=== PATIENT | female | born 1945 | race Caucasian/White ===

== ENCOUNTER 2018-10-27 12:35 | Emergency (ER) | payer MEDICARE, OTHER ==
[~2018-10-27] VITALS: Ht 170.2 cm; Wt 122.7 kg
[2018-10-27] MEDS ORDERED: CLON-570 PO (13:33)
[2018-10-27] MEDS ORDERED: LISI-660 PO (13:34)
[2018-10-27 14:33] VITALS: BP 188/92
[2018-10-27] MEDS ORDERED: GABAPENTIN 300 MG CAPSULE PO ONE (15:45)
[2018-10-27] MEDS ORDERED: HydrALAZINE HCL 10 MG TABLET PO ONE (15:45)
== END 2018-10-27 15:50 | disposition short-term general hospital (02) ==
LOC: EMS 12:36
DX: S06.5X0A Traumatic subdural hemorrhage without loss of consciousness, initial encounter (principal); I10 Essential (primary) hypertension; I48.91 Unspecified atrial fibrillation; Z88.8 Allergy status to other drugs, medicaments and biological substances; W18.39XA Other fall on same level, initial encounter; Y93.89 Activity, other specified; Y92.89 Other specified places as the place of occurrence of the external cause; Y99.8 Other external cause status
CPT/HCPCS: 70450

== ENCOUNTER → 2018-10-27 | Outpatient (CLI) | payer MEDICARE ==
[~2018-10-27] VITALS: Ht 170.2 cm; Wt 122.2 kg
[~2018-10-27] MED LIST: CLON-570 PO; LISI-660 PO
[2018-10-27 11:23] VITALS: BP 167/75
== END | disposition home or self-care (01) ==
LOC: HBOWC 10:28
PROVIDERS: ATTEND Surgery Plastic and Reconstructive Surgery
DX: T81.89XA Other complications of procedures, not elsewhere classified, initial encounter (principal); I10 Essential (primary) hypertension; E11.9 Type 2 diabetes mellitus without complications; Y83.8 Other surgical procedures as the cause of abnormal reaction of the patient, or of later complication, without mention of misadventure at the time of the procedure; Y92.89 Other specified places as the place of occurrence of the external cause
CPT/HCPCS: 11043; G0463

== ENCOUNTER → 2018-11-17 | Outpatient (CLI) | payer MEDICARE, OTHER ==
[2018-11-17 10:00] VITALS: BP 141/55
== END | disposition home or self-care (01) ==
LOC: HBOWC 09:43
PROVIDERS: ATTEND Surgery Plastic and Reconstructive Surgery
DX: T81.31XD Disruption of external operation (surgical) wound, not elsewhere classified, subsequent encounter (principal); I10 Essential (primary) hypertension; E11.9 Type 2 diabetes mellitus without complications; I48.91 Unspecified atrial fibrillation; Y83.8 Other surgical procedures as the cause of abnormal reaction of the patient, or of later complication, without mention of misadventure at the time of the procedure

== ENCOUNTER → 2018-11-24 | Outpatient (CLI) | payer MEDICARE, OTHER ==
[~2018-11-24] MED LIST changes: +CELE200 PO; +DOCU50LI12 PO; +DULO60CA44 PO; +FURO20 PO; +GABA-531 PO; +HYDR-2924 PO; +LEVO150 PO; +LEVO200 PO; +LORA10TA7 PO; +MONT10TA21 PO; +OMEP20 PO; +POLY238P2 PO; +SILD25 PO; +SOTA80 PO
[2018-11-24 10:52] VITALS: BP 140/57
[2018-11-24 12:30] LABS: BASOPHILS % (AUTO) 0.7 % (0.0-2.0); EOSINOPHILS % (AUTO) 1.2 % (1.0-6.0); HEMATOCRIT 37.7 % (36-46); HEMOGLOBIN 12.4 g/dL (12.0-16.0); LYMPHOCYTES # (AUTO) 1.9 K/uL (1.0-4.8); LYMPHOCYTES % (AUTO) 19.6 % (22.0-44.0); MEAN CORPUSCULAR HEMOGLOBIN 29.7 pg (26.0-34.0); MEAN CORPUSCULAR HGB CONC 32.9 G/dL (31.0-37.0); MEAN CORPUSCULAR VOLUME 90 fL (80-100); MONOCYTES # (AUTO) 1.1 K/uL (0.1-1.0); MONOCYTES % (AUTO) 10.9 % (2.0-9.0); NEUTROPHILS # (AUTO) 6.7 K/uL (1.8-7.7); NEUTROPHILS % (AUTO) 67.6 % (40.0-70.0); PLATELET COUNT (AUTO) 305 K/uL (150-450); RED BLOOD CELL COUNT(AUTO) 4.18 MIL/uL (4.00-5.20); RED CELL DISTRIBUTION WIDTH 14.7 % (11.5-14.5)
[2018-11-24 13:31] LABS: ALANINE AMINOTRANSFERASE 54 U/L (12-78); ALBUMIN 2.8 g/dL (3.4-5.0); ALKALINE PHOSPHATASE 77 U/L (46-116); ANION GAP 6 mmol/L (8-16); ASPARTATE AMINOTRANSFERASE 33 U/L (15-37); BILIRUBIN,TOTAL 0.4 mg/dL (0.1-1.0); CALCIUM, TOTAL 8.9 mg/dL (8.8-10.5); CARBON DIOXIDE 32 mmol/L (22-29); CHLORIDE 104 mmol/L (98-107); CREATININE 0.41 mg/dL (0.60-1.30); GLUCOSE,RANDOM 93 mg/dL (70-110); POTASSIUM 3.9 mmol/L (3.5-5.1); SODIUM SERUM 142 mmol/L (136-145); THYROID STIMULATING HORMONE 0.16 uIU/mL (0.36-3.74); TOTAL PROTEIN, SERUM 6.5 g/dL (6.4-8.2); UREA NITROGEN, BLOOD 22 mg/dL (7-18)
[2018-11-24 13:32] LABS: GLOMERULAR FILTR. RATE CALC > 60 mL/min (>60)
[2018-11-25 11:32] LABS: APPEARANCE,URINE CLOUDY (CLEAR); BILIRUBIN,URINE NEGATIVE (NEGATIVE); GLUCOSE, URINE (UA) NEGATIVE (NEGATIVE); KETONES,URINE NEGATIVE (NEGATIVE); LEUKOCYTE ESTERASE ,URINE MODERATE (NEGATIVE); NITRATE,URINE POSITIVE (NEGATIVE); OCCULT BLOOD,URINE NEGATIVE (NEGATIVE); PROTEIN,URINE NEGATIVE (NEGATIVE); UROBILINOGEN,URINE 0.2 mg/dL (<=1.0)
[2018-11-25 11:46] LABS: BACTERIA,URINE Many /HPF (None Seen); RBC,URINE 0-2 /HPF (0-2); SQUAMOUS EPITHELIAL CELL,UR Few /LPF (None Seen)
== END | disposition home or self-care (01) ==
LOC: HBOWC 10:22
PROVIDERS: ATTEND Surgery Plastic and Reconstructive Surgery
DX: T81.31XD Disruption of external operation (surgical) wound, not elsewhere classified, subsequent encounter (principal); I10 Essential (primary) hypertension; E11.9 Type 2 diabetes mellitus without complications; I48.91 Unspecified atrial fibrillation; Z79.899 Other long term (current) drug therapy; Y83.8 Other surgical procedures as the cause of abnormal reaction of the patient, or of later complication, without mention of misadventure at the time of the procedure
CPT/HCPCS: 11043; 82306; 84443; 87086; 93005

== ENCOUNTER 2018-12-01 12:07 | Emergency (ER) | payer MEDICARE, OTHER ==
[~2018-12-01] VITALS: Ht 170.2 cm; Wt 122.7 kg
[~2018-12-01 12:07] MED LIST changes: -CELE200 PO; -DOCU50LI12 PO; -DULO60CA44 PO; -FURO20 PO; -GABA-531 PO; -HYDR-2924 PO; -LEVO150 PO; -LEVO200 PO; -LORA10TA7 PO; -MONT10TA21 PO; -OMEP20 PO; -POLY238P2 PO; -SILD25 PO; -SOTA80 PO
[2018-12-01] MEDS ORDERED: SOTA80 PO (12:20)
[2018-12-01] MEDS ORDERED: OMEP20 PO (12:20)
[2018-12-01] MEDS ORDERED: LORA10TA7 PO (12:20)
[2018-12-01] MEDS ORDERED: HYDR-2924 PO (12:20)
[2018-12-01] MEDS ORDERED: MONT10TA21 PO (12:20)
[2018-12-01] MEDS ORDERED: CELE200 PO (12:20)
[2018-12-01] MEDS ORDERED: FURO20 PO (12:20)
[2018-12-01] MEDS ORDERED: POLY238P2 PO (12:20)
[2018-12-01] MEDS ORDERED: DOCU50LI12 PO (12:20)
[2018-12-01] MEDS ORDERED: DULO60CA44 PO (12:20)
[2018-12-01] MEDS ORDERED: LEVO150 PO (12:20)
[2018-12-01] MEDS ORDERED: GABA-531 PO (12:20)
[2018-12-01] MEDS ORDERED: SILD25 PO (12:20)
[2018-12-01 14:37] LABS: BASOPHILS % (AUTO) 0.4 % (0.0-2.0); EOSINOPHILS % (AUTO) 2.2 % (1.0-6.0); HEMATOCRIT 38.8 % (36-46); HEMOGLOBIN 12.6 g/dL (12.0-16.0); LYMPHOCYTES # (AUTO) 2.1 K/uL (1.0-4.8); LYMPHOCYTES % (AUTO) 20.6 % (22.0-44.0); MEAN CORPUSCULAR HEMOGLOBIN 29.7 pg (26.0-34.0); MEAN CORPUSCULAR HGB CONC 32.5 G/dL (31.0-37.0); MEAN CORPUSCULAR VOLUME 91 fL (80-100); MONOCYTES # (AUTO) 1.4 K/uL (0.1-1.0); MONOCYTES % (AUTO) 13.4 % (2.0-9.0); NEUTROPHILS # (AUTO) 6.5 K/uL (1.8-7.7); NEUTROPHILS % (AUTO) 63.4 % (40.0-70.0); PLATELET COUNT (AUTO) 340 K/uL (150-450); RED BLOOD CELL COUNT(AUTO) 4.25 MIL/uL (4.00-5.20); RED CELL DISTRIBUTION WIDTH 15.3 % (11.5-14.5)
[2018-12-01 14:56] LABS: ANION GAP 3 mmol/L (8-16); B-TYPE NATRIURETIC PEPTIDE 138 pg/mL (0-100); CALCIUM, TOTAL 8.9 mg/dL (8.8-10.5); CARBON DIOXIDE 33 mmol/L (22-29); CHLORIDE 102 mmol/L (98-107); CREATININE 0.49 mg/dL (0.60-1.30); GLUCOSE,RANDOM 94 mg/dL (70-110); POTASSIUM 3.7 mmol/L (3.5-5.1); SODIUM SERUM 138 mmol/L (136-145); UREA NITROGEN, BLOOD 22 mg/dL (7-18)
[2018-12-01 14:57] LABS: GLOMERULAR FILTR. RATE CALC > 60 mL/min (>60)
[2018-12-01 15:01] LABS: ALANINE AMINOTRANSFERASE 29 U/L (12-78); ALKALINE PHOSPHATASE 79 U/L (46-116); ASPARTATE AMINOTRANSFERASE 23 U/L (15-37); BILIRUBIN,TOTAL 0.3 mg/dL (0.1-1.0); CREATINE KINASE, TOTAL ONLY 20 U/L (26-192); TOTAL PROTEIN, SERUM 6.8 g/dL (6.4-8.2)
[2018-12-01 15:57] LABS: APPEARANCE,URINE CLOUDY (CLEAR); BILIRUBIN,URINE NEGATIVE (NEGATIVE); GLUCOSE, URINE (UA) NEGATIVE (NEGATIVE); KETONES,URINE NEGATIVE (NEGATIVE); LEUKOCYTE ESTERASE ,URINE MODERATE (NEGATIVE); NITRATE,URINE POSITIVE (NEGATIVE); OCCULT BLOOD,URINE NEGATIVE (NEGATIVE); PH,URINE 5.5 (5.0-8.0); PROTEIN,URINE NEGATIVE (NEGATIVE); UROBILINOGEN,URINE 0.2 mg/dL (<=1.0)
[2018-12-01 16:11] LABS: BACTERIA,URINE Many /HPF (None Seen); RBC,URINE None Seen /HPF (0-2); WBC,URINE 51-100 /HPF (0-5)
[2018-12-01 16:12] LABS: SQUAMOUS EPITHELIAL CELL,UR Few /LPF (None Seen)
[2018-12-01] MEDS ORDERED: DEXAMETHASONE SOD PHOS 4 MG/ML 5 ML VIAL IVP ONE (17:45)
[2018-12-01] MEDS ORDERED: CefTRIAXone 1 GM/DEXTROSE 50 ML IV ONE (17:45)
[2018-12-01] MEDS ORDERED: AZITHROMYCIN 500 MG/NS 250 ML IV ONE (17:45)
[2018-12-01] MEDS ORDERED: SODIUM CHLORIDE 0.9% 1,000 ML IV ONE (17:45)
[2018-12-01] MEDS ORDERED: IPRATROPIUM BROMIDE 0.5 MG/2.5 ML NEB SOLUTION NEB ONE (17:45)
[2018-12-01] MEDS ORDERED: ALBUTEROL SULFATE 2.5 MG/0.5 ML NEB SOLUTION NEB ONE (17:45)
[2018-12-01] MEDS ORDERED: LEVO200 PO (17:47)
[2018-12-01 20:30] VITALS: BP 140/50
== END 2018-12-01 20:57 | disposition home or self-care (01) ==
LOC: EMS 12:08
DX: J40 Bronchitis, not specified as acute or chronic (principal); E86.0 Dehydration; N39.0 Urinary tract infection, site not specified; E03.9 Hypothyroidism, unspecified; I11.0 Hypertensive heart disease with heart failure; I50.9 Heart failure, unspecified; M19.90 Unspecified osteoarthritis, unspecified site; M86.9 Osteomyelitis, unspecified; F32.9 Major depressive disorder, single episode, unspecified; Z79.899 Other long term (current) drug therapy; Z88.6 Allergy status to analgesic agent; Z88.8 Allergy status to other drugs, medicaments and biological substances
CPT/HCPCS: 36415; 71045; 80053; 81001; 82550; 83880; 84484; 85025; 87086; 93005; 94640; 96365; 96366; 96368; 96375; 99285; J0456; J0696; J1100; J7030

== ENCOUNTER → 2018-12-01 | Outpatient (CLI) | payer MEDICARE, OTHER ==
[2018-12-01 11:05] VITALS: BP 130/80
== END | disposition home or self-care (01) ==
LOC: HBOWC 10:32
PROVIDERS: ATTEND Surgery Plastic and Reconstructive Surgery
DX: T81.31XD Disruption of external operation (surgical) wound, not elsewhere classified, subsequent encounter (principal); I10 Essential (primary) hypertension; E11.9 Type 2 diabetes mellitus without complications; I48.91 Unspecified atrial fibrillation; Z79.899 Other long term (current) drug therapy; Y83.8 Other surgical procedures as the cause of abnormal reaction of the patient, or of later complication, without mention of misadventure at the time of the procedure
CPT/HCPCS: 11043